=== PATIENT | male | born 1990 | race Caucasian/White ===

== ENCOUNTER 2021-02-24 18:24 | Emergency (ER) | payer BC ==
[2021-02-24] MEDS ORDERED: Sodium Chloride 0.9% 10 ML Syringe FLUSH PRN (18:53)
[2021-02-24] MEDS ORDERED: Sodium Chloride 0.9% 1,000 ML IV ONE ×2 (18:53→20:05)
--- NOTE | 2021-02-24 19:10 | EDM.PDOC ---
ED HPI GENERAL MEDICAL PROBLEM - General Chief Complaint: Fever Stated Complaint: MEDICAL CHECK/FEVER Time Seen by Provider: 02/24/21 18:38 Source of Information: Reports: Patient, Family (Patient's ) History Limitations: Reports: No Limitations, Other (ED vital signs reveal a temp of 99.4, pulse of 118, respiratory rate of 18, blood pressure 154/89, pulse ox 93% on room air.) - History of Present Illness INITIAL COMMENTS - FREE TEXT/NARRATIVE: 30-year-old male presents the emergency department this evening with complaints of fever, headache, generalized body aches, and nausea. The patient awakens to verbal command however he has not much of a historian as he states he feels so weak. Patient's reports that patient went to work this morning per his usual and did not have any complaints. She states that at about noon he came home from work as he stated he was not feeling well. She states that his chief complaint was generalized body aches and a headache. He is normally healthy and does not take any prescription medications. He denies any vomiting, diarrhea, abdominal pain, cough or shortness of breath. 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 She states he primarily drinks Dr. Duffy. She states that when he got home from work he went to bed however he became more weak and groggy so she called his brother to help get him into the car to bring him to the emergency department. The patient does not smoke, he does not drink any alcohol or do any illicit drugs. - Related Data Allergies Allergy/AdvReac Type Severity Reaction Status Date / Time No Known Allergies Allergy Verified 02/24/21 18:44 Home Meds: Home Meds . [No Known Home Meds] 02/24/21 [History] Past Medical History Endocrine/Metabolic History: Reports: Obesity/BMI 30+ - Past Surgical History Dermatological Surgical History: Reports: Other (See Below) Social & Family History - Tobacco Use Tobacco Use Status *Q: Never Tobacco User - Caffeine Use Caffeine Use: Reports: None - Recreational Drug Use Recreational Drug Use: No ED ROS GENERAL - Review of Systems Review Of Systems: See Below Constitutional: Reports: Fever, Malaise, Weakness, Fatigue, Decreased Appetite HEENT: Reports: No Symptoms Respiratory: Reports: No Symptoms Cardiovascular: Reports: No Symptoms Endocrine: Reports: Fatigue GI/Abdominal: Reports: Decreased Appetite, Nausea. Denies: Abdominal Pain, Constipation, Diarrhea, Vomiting : Reports: No Symptoms Musculoskeletal: Reports: Back Pain (And has chronic low back pain; was recently to the chiropractor yesterday) Skin: Reports: No Symptoms Neurological: Reports: Headache, Weakness Psychiatric: Reports: No Symptoms Hematologic/Lymphatic: Reports: No Symptoms Immunologic: Reports: No Symptoms ED EXAM, GENERAL - Physical Exam Exam: See Below Exam Limited By: No Limitations General Appearance: Lethargic Ears: Normal External Exam, Hearing Grossly Normal Nose: Normal Inspection Throat/Mouth: Normal Inspection, Normal Lips, Normal Oropharynx, Normal Voice, No Airway Compromise Head: Atraumatic, Normocephalic Neck: Normal Inspection, Supple Respiratory/Chest: No Respiratory Distress, Lungs Clear, Normal Breath Sounds, No Accessory Muscle Use, Chest Non-Tender Cardiovascular: Normal Peripheral Pulses, No Edema, No Murmur, Tachycardia Peripheral Pulses: 2+: Radial (L), Radial (R) GI/Abdominal: Normal Bowel Sounds, Soft, Non-Tender, No Distention (Male) Exam: Deferred Rectal (Males) Exam: Deferred Back Exam: Normal Inspection Extremities: Normal Inspection Neurological: Oriented, Normal Cognition, Slow to Respond Psychiatric: Normal Affect, Normal Mood Skin Exam: Warm, Intact, Diaphoretic, Other (cheeks are flushed). No: No Rash (Light pink papular rash noted to bilateral rib area) Lymphatic: No Adenopathy #1 Interpretation EKG Date: 02/24/21 Time: 18:38 Rhythm: NSR Rate (Beats/Min): 123 [place]: Normal P-Wave: Present QRS: Normal ST-T: Normal QT: Prolonged Comparison: NA - No Prior EKG EKG Interpretation Comments: Per Dr. Starr interpretation: Sinus tachycardia at 123/min; consider mild left atrial hypertrophy; QTC mildly prolonged Course - Vital Signs Text/Narrative:: Again patient presents with fever, generalized fatigue, body aches, and headache. This developed sometime between this morning when the patient left for work and approximately noon today. He then came home from the day and went to lay down. Upon assessment, the patient is drowsy but opens his eyes to verbal command but quickly falls back to sleep. Pupils are equal round and r eactive to light. His cheeks are very flushed and he is diaphoretic. Mucous membranes are moist. He has no palpable cervical lymph nodes. His lung sounds are clear to auscultation. He denies any abdominal pain or discomfort. His only complaint is generalized body aches. I have ordered a full septic work-up on this patient as he does feel hot to touch and he is tachycardic. O2 saturations are only 93% on room air. Patient will also receive a liter of IV fluids wide open as this should help to rehydrate him and bring his fever down. Last Recorded V/S: Last Vital Signs Temp 98 F 02/24/21 20:39 Pulse 118 H 02/24/21 18:42 Resp 18 02/24/21 18:42 BP 145/92 H 02/24/21 19:15 Pulse Ox 93 L 02/24/21 18:42 - Orders/Labs/Meds Orders: Active Orders 24 hr Category Date Time Status Blood Pressure Mgt: Sepsis [RC] Q15MX2 Care 02/24/21 18:54 Active EKG Documentation Completion [RC] ASDIRECTED Care 02/24/21 18:55 Active CULTURE BLOOD [BC] Stat Lab 02/24/21 19:15 Received CULTURE BLOOD [BC] Stat Lab 02/24/21 19:30 Received Sodium Chloride 0.9% [Saline Flush] Med 02/24/21 18:53 Active 10 ml FLUSH ASDIRECTED PRN Blood Culture x2 Reflex Set [OM.PC] Stat Oth 02/24/21 18:54 Ordered Saline Lock Insert [OM.PC] Stat Oth 02/24/21 18:54 Ordered EKG 12 Lead [EK] Stat Ther 02/24/21 18:53 Ordered Medication Orders Sodium Chloride (Sodium Chloride 0.9% 10 Ml Syringe) 10 ml FLUSH ASDIRECTED PRN PRN Reason: Keep Vein Open Last Admin: 02/24/21 19:11 Dose: 10 ml Documented by: TRAMAINE Labs: Laboratory Tests 02/24/21 02/24/21 02/24/21 Range/Units 18:40 18:40 18:40 WBC 15.14 H (4.23-9.07) K/mm3 RBC 5.86 (4.63-6.08) M/mm3 Hgb 17.1 (13.7-17.5) gm/dl Hct 49.6 (40.1-51.0) % MCV 84.6 (79.0-92.2) fl MCH 29.2 (25.7-32.2) pg MCHC 34.5 (32.2-35.5) g/dl RDW Std Deviation 40.9 (35.1-43.9) fL Plt Count 234 (163-337) K/mm3 MPV 10.5 (9.4-12.3) fl Neutrophils % (Manual) 85 H (40-60) % Band Neutrophils % 0 (0-10) % Lymphocytes % (Manual) 8 L (20-40) % Atypical Lymphs % 0 % Monocytes % (Manual) 5 (2-10) % Eosinophils % (Manual) 0 L (0.8-7.0) % Basophils % (Manual) 2 H (0.2-1.2) Platelet Estimate Adequate RBC Morph Comment Normal PT (9.7-12.0) SECONDS INR APTT 27.9 (21.7-31.4) SECONDS Sodium 140 (136-145) mEq/L Potassium 3.3 L (3.5-5.1) mEq/L Chloride 104 (98-107) mEq/L Carbon Dioxide 22 (21-32) mEq/L Anion Gap 17.3 H (5-15) BUN 11 (7-18) mg/dL Creatinine 1.3 (0.7-1.3) mg/dL Est Cr Clr Drug Dosing 94.85 mL/min Estimated GFR (MDRD) > 60 (>60) mL/min BUN/Creatinine Ratio 8.5 L (14-18) Glucose 108 H (70-99) mg/dL Lactic Acid (0.4-2.0) mmol/L Calcium 8.7 (8.5-10.1) mg/dL Total Bilirubin 1.4 H (0.2-1.0) mg/dL AST 22 (15-37) U/L ALT 41 (16-63) U/L Alkaline Phosphatase 63 (46-116) U/L C-Reactive Protein 4.3 H* (<1.0) mg/dL Total Protein 7.4 (6.4-8.2) g/dl Albumin 4.0 (3.4-5.0) g/dl Globulin 3.4 gm/dL Albumin/Globulin Ratio 1.2 (1-2) Lipase 73 (73-393) U/L Urine Color (Yellow) Urine Appearance (Clear) Urine pH (5.0-8.0) Ur Specific [place] (1.005-1.030) Urine Protein (Negative) Urine Glucose (UA) (Negative) Urine Ketones (Negative) Urine Occult Blood (Negative) Urine Nitrite (Negative) Urine Bilirubin (Negative) Urine Urobilinogen (0.2-1.0) Ur Leukocyte Esterase (Negative) U Hyaline Cast (Auto) (0-5) /lpf Urine RBC (0-5) /hpf Urine WBC (0-5) /hpf Ur Epithelial Cells (0-5) /hpf Urine Bacteria (FEW) /hpf Urine Mucus (FEW) /hpf SARS-CoV-2 RNA (YAAKOV) (NEGATIVE) 02/24/21 02/24/21 02/24/21 Range/Units 18:40 19:02 19:15 WBC (4.23-9.07) K/mm3 RBC (4.63-6.08) M/mm3 Hgb (13.7-17.5) gm/dl Hct (40.1-51.0) % MCV (79.0-92.2) fl MCH (25.7-32.2) pg MCHC (32.2-35.5) g/dl RDW Std Deviation (35.1-43.9) fL Plt Count (163-337) K/mm3 MPV (9.4-12.3) fl Neutrophils % (Manual) (40-60) % Band Neutrophils % (0-10) % Lymphocytes % (Manual) (20-40) % Atypical Lymphs % % Monocytes % (Manual) (2-10) % Eosinophils % (Manual) (0.8-7.0) % Basophils % (Manual) (0.2-1.2) Platelet Estimate RBC Morph Comment PT 12.9 H (9.7-12.0) SECONDS INR 1.21 APTT (21.7-31.4) SECONDS Sodium (136-145) mEq/L Potassium (3.5-5.1) mEq/L Chloride (98-107) mEq/L Carbon Dioxide (21-32) mEq/L Anion Gap (5-15) BUN (7-18) mg/dL Creatinine (0.7-1.3) mg/dL Est Cr Clr Drug Dosing mL/min Estimated GFR (MDRD) (>60) mL/min BUN/Creatinine Ratio (14-18) Glucose (70-99) mg/dL Lactic Acid 0.9 (0.4-2.0) mmol/L Calcium (8.5-10.1) mg/dL Total Bilirubin (0.2-1.0) mg/dL AST (15-37) U/L ALT (16-63) U/L Alkaline Phosphatase (46-116) U/L C-Reactive Protein (<1.0) mg/dL Total Protein (6.4-8.2) g/dl Albumin (3.4-5.0) g/dl Globulin gm/dL Albumin/Globulin Ratio (1-2) Lipase (73-393) U/L Urine Color (Yellow) Urine Appearance (Clear) Urine pH (5.0-8.0) Ur Specific [place] (1.005-1.030) Urine Protein (Negative) Urine Glucose (UA) (Negative) Urine Ketones (Negative) Urine Occult Blood (Negative) Urine Nitrite (Negative) Urine Bilirubin (Negative) Urine Urobilinogen (0.2-1.0) Ur Leukocyte Esterase (Negative) U Hyaline Cast (Auto) (0-5) /lpf Urine RBC (0-5) /hpf Urine WBC (0-5) /hpf Ur Epithelial Cells (0-5) /hpf Urine Bacteria (FEW) /hpf Urine Mucus (FEW) /hpf SARS-CoV-2 RNA (YAAKOV) Negative (NEGATIVE) 02/24/21 Range/Units 19:44 WBC (4.23-9.07) K/mm3 RBC (4.63-6.08) M/mm3 Hgb (13.7-17.5) gm/dl Hct (40.1-51.0) % MCV (79.0-92.2) fl MCH (25.7-32.2) pg MCHC (32.2-35.5) g/dl RDW Std Deviation (35.1-43.9) fL Plt Count (163-337) K/mm3 MPV (9.4-12.3) fl Neutrophils % (Manual) (40-60) % Band Neutrophils % (0-10) % Lymphocytes % (Manual) (20-40) % Atypical Lymphs % % Monocytes % (Manual) (2-10) % Eosinophils % (Manual) (0.8-7.0) % Basophils % (Manual) (0.2-1.2) Platelet Estimate RBC Morph Comment PT (9.7-12.0) SECONDS INR APTT (21.7-31.4) SECONDS Sodium (136-145) mEq/L Potassium (3.5-5.1) mEq/L Chloride (98-107) mEq/L Carbon Dioxide (21-32) mEq/L Anion Gap (5-15) BUN (7-18) mg/dL Creatinine (0.7-1.3) mg/dL Est Cr Clr Drug Dosing mL/min Estimated GFR (MDRD) (>60) mL/min BUN/Creatinine Ratio (14-18) Glucose (70-99) mg/dL Lactic Acid (0.4-2.0) mmol/L Calcium (8.5-10.1) mg/dL Total Bilirubin (0.2-1.0) mg/dL AST (15-37) U/L ALT (16-63) U/L Alkaline Phosphatase (46-116) U/L C-Reactive Protein (<1.0) mg/dL Total Protein (6.4-8.2) g/dl Albumin (3.4-5.0) g/dl Globulin gm/dL Albumin/Globulin Ratio (1-2) Lipase (73-393) U/L Urine Color Yellow (Yellow) Urine Appearance Clear (Clear) Urine pH 6.0 (5.0-8.0) Ur Specific [place] 1.025 (1.005-1.030) Urine Protein 1+ H (Negative) Urine Glucose (UA) Negative (Negative) Urine Ketones Trace H (Negative) Urine Occult Blood Negative (Negative) Urine Nitrite Negative (Negative) Urine Bilirubin Negative (Negative) Urine Urobilinogen 0.2 (0.2-1.0) Ur Leukocyte Esterase Negative (Negative) U Hyaline Cast (Auto) 0-5 (0-5) /lpf Urine RBC Not seen (0-5) /hpf Urine WBC 0-5 (0-5) /hpf Ur Epithelial Cells Not seen (0-5) /hpf Urine Bacteria Few (FEW) /hpf Urine Mucus Moderate H (FEW) /hpf SARS-CoV-2 RNA (YAAKOV) (NEGATIVE) Meds: Medications Generic Name Dose Route Start Last Admin Trade Name Marcy PRN Reason Stop Dose Admin Sodium Chloride 10 ml 02/24/21 18:53 02/24/21 19:11 Sodium Chloride 0.9% 10 Ml Syringe FLUSH 10 ml ASDIRECTED PRN Administration Keep Vein Open Discontinued Medications Generic Name Dose Route Start Last Admin Trade Name Marcy PRN Reason Stop Dose Admin Acetaminophen 650 mg 02/24/21 20:33 02/24/21 20:39 Acetaminophen 325 Mg Tab PO 02/24/21 20:34 650 mg NOW ONE Administration Sodium Chloride 1,000 mls @ 999 mls/hr 02/24/21 18:53 02/24/21 19:10 Normal Saline IV 02/24/21 19:53 999 mls/hr BOLUS ONE Administration Protocol Sodium Chloride 1,000 mls @ 999 mls/hr 02/24/21 20:05 02/24/21 20:17 Normal Saline IV 02/24/21 21:05 999 mls/hr ONETIME ONE Administration Potassium Chloride 40 meq 02/24/21 20:33 02/24/21 20:38 Potassium Chloride 20 Meq Tab.Er PO 02/24/21 20:34 40 meq ONETIME ONE Administration - Re-Assessments/Exams Free Text/Narrative Re-Assessment/Exam: 02/24/21 20:39 Hematology reveals a WBC of 15.14, hemoglobin 17.1, hematocrit 49.6, neutrophil percentage 85, with 0 bands Coagulation reveals a pro time 12.9, INR 1.21, PTT 27.9 Chemistry reveals a sodium of 140, potassium 3.3, carbon dioxide 22, anion gap 17.3, BUN 11, creatinine 1.3, glucose 108, lactic acid 0.9, total bilirubin 1.4, AST 22, ALT 41, alk phos 63, C-reactive protein 4.3, lipase 73 Urinalysis reveals 1+ protein, trace of ketones, moderate mucus Patient is Covid negative. 02/24/21 20:44 Patient is much more alert after receiving first liter of fluid. States he feels chilled. His potassium level is a little low so I have elected to give him 40 mEq of oral potassium. I will also give him 650 mg of Tylenol. 02/24/21 21:16 Radiologist impression portable view of the chest: 1. Slightly limited inspiratory study. Within this limitation, nothing acute is appreciated on portable chest. 02/24/21 22:26 States that he is feeling much better. He is much more alert. I believe that the elevated white count is likely due to a stress response due to patient being slightly dehydrated and having heat exhaustion today. He will be discharged home with recommendations that he follow-up with a primary care provider in about 3 days if he is not feeling better. Departure - Departure Time of Disposition: 22:26 Disposition: Home, Self-Care 01 Condition: Good Clinical Impression: Heat exhaustion Qualifiers: Encounter type: initial encounter Qualified Code(s): T67.5XXA - Heat exhaustion, unspecified, initial encounter - Discharge Information Instructions: Preventing Heat Exhaustion, Adult Referrals: PCP,Not In Area [Primary Care Provider] - Forms: ED Department Discharge, ED Return to Work/School Form Additional Instructions: You are seen in the emergency department today with fever, chills, fatigue and generalized body aches. Labs and a chest x-ray were completed as well as a urinalysis. These were all essentially unremarkable. As I discussed with you his white blood cell count was elevated however I believe this is due to a stress response due to heat exhaustion. You received 2 L of IV fluids while in the emergency department, Tylenol and potassium as your potassium level was slightly low. Try to rest over the course of the next couple of days and drink plenty of fluids. Drink Gatorade while at work and plenty of water when out in the heat. If you are not feeling better in about 3 days time recommend that you follow-up with your primary care provider. A list of this will be included in this discharge packet. Should your condition worsen or change, do not hesitate returning to the emergency department. Sepsis Event Note (ED) - Evaluation Sepsis Screening Result: Possible Sepsis Risk - Focused Exam Vital Signs: Vital Signs Temp Temp Pulse Resp BP Pulse Ox 02/24/21 20:39 98 F 02/24/21 19:15 145/92 H 02/24/21 18:42 99.4 F 118 H 18 154/89 H 93 L - My Orders Last 24 Hours: My Active Orders 02/24/21 18:53 Sodium Chloride 0.9% [Saline Flush] 10 ml FLUSH ASDIRECTED PRN EKG 12 Lead [EK] Stat 02/24/21 18:54 Blood Pressure Mgt: Sepsis [RC] Q15MX2 Blood Culture x2 Reflex Set [OM.PC] Stat Saline Lock Insert [OM.PC] Stat 02/24/21 18:55 EKG Documentation Completion [RC] ASDIRECTED 02/24/21 19:15 CULTURE BLOOD [BC] Stat 02/24/21 19:30 CULTURE BLOOD [BC] Stat - Assessment/Plan Last 24 Hours: My Active Orders 02/24/21 18:53 Sodium Chloride 0.9% [Saline Flush] 10 ml FLUSH ASDIRECTED PRN EKG 12 Lead [EK] Stat 02/24/21 18:54 Blood Pressure Mgt: Sepsis [RC] Q15MX2 Blood Culture x2 Reflex Set [OM.PC] Stat Saline Lock Insert [OM.PC] Stat 02/24/21 18:55 EKG Documentation Completion [RC] ASDIRECTED 02/24/21 19:15 CULTURE BLOOD [BC] Stat 02/24/21 19:30 CULTURE BLOOD [BC] Stat
[2021-02-24] MEDS ORDERED: Potassium Chloride 20 MEQ Tab.ER PO ONE (20:33)
[2021-02-24] MEDS ORDERED: Acetaminophen 325 MG Tab PO ONE (20:33)
--- NOTE | 2021-02-24 20:53 | CR ---
Chest: Portable view of the chest was obtained. Comparison: No previous study. Slightly limited inspiratory effort is seen. Lungs otherwise are felt to be clear. Heart size and mediastinum are normal. No acute osseous abnormality is appreciated. Impression: 1. Slightly limited inspiratory study. Within this limitation, nothing acute is appreciated on portable chest. Diagnostic code #2
== END 2021-02-24 22:35 | disposition home or self-care (01) ==
LOC: JD.ED 18:24
DX: T67.5XXA Heat exhaustion, unspecified, initial encounter (principal); E66.9 Obesity, unspecified; Z68.30 Body mass index [BMI] 30.0-30.9, adult; Z20.822 Contact with and (suspected) exposure to COVID-19
CPT/HCPCS: 36415; 71045; 80053; 81001; 83605; 83690; 85007; 85027; 85610; 85730; 86140; 87040; 87635; 93005; 99284; A9270; J7030; 93010; U0002